=== PATIENT | male | born 1965 | race Caucasian/White ===

== ENCOUNTER 2023-02-13 18:32 | Emergency (ER) | payer MEDICAID ==
[~2023-02-13] VITALS: Ht 177.8 cm; Wt 102.3 kg
[2023-02-13] MEDS ORDERED: amiodarone 150mg/dext, iso-os 100 ML IV ONE ×3 (18:45→19:00)
[2023-02-13] MEDS ORDERED: amiodarone 50MG/ML inj IV ONE (18:45)
[2023-02-13 19:03] LABS: BASOPHILS % (AUTO) 0.4 % (0-1); EOSINOPHILS % (AUTO) 0.3 % (0-6); HEMATOCRIT 43.5 % (42.0-52.0); HEMOGLOBIN 14.6 g/dl (14.0-17.9); LYMPHOCYTES % (AUTO) 26.6 % (21-51); MEAN CORPUSCULAR HEMOGLOBIN 29.5 PG (27.0-31.0); MEAN CORPUSCULAR HGB CONC 33.5 g/dL (33.0-36.5); MEAN PLATELET VOLUME 8.4 FL (7.4-10.4); MONOCYTES # (AUTO) 1.2 X10'3 (0-0.9); MONOCYTES % (AUTO) 10.9 % (2-12); NEUTROPHILS % (AUTO) 61.8 % (42-75); PLATELET COUNT 232 X10'3 (140-440); RED BLOOD COUNT 4.95 X10'6 (4.70-6.10); RED CELL DISTRIBUTION WIDTH 14.2 % (11.5-14.5); WHITE BLOOD COUNT 11.4 X10'3 (4.5-11.0)
[2023-02-13] MEDS: amiodarone/D5 360MG/200ML BAG 200 ML IV SCH (19:08)
[2023-02-13] MEDS ORDERED: aspirin 325mg tablet PO ONE (19:15)
[2023-02-13 19:24] LABS: ALANINE AMINOTRANSFERASE 64 U/L (12-78); ALBUMIN 3.2 G/DL (3.4-5.0); ALBUMIN/GLOBULIN RATIO 0.6 (1.1-1.5); ALKALINE PHOSPHATASE 202 IU/L (46-116); ANION GAP 12 (8-16); ASPARTATE AMINO TRANSFERASE 33 U/L (10-37); BILIRUBIN,TOTAL 1.1 MG/DL (0.1-1.0); BLOOD UREA NITROGEN 28 MG/DL (7-18); BUN/CREATININE RATIO 16.2 (10.0-20.0); CALCIUM 8.5 MG/DL (8.5-10.1); CHLORIDE 102 MMOL/L (99-107); CREATININE 1.73 MG/DL (0.60-1.10); GLUCOSE 121 MG/DL (70-104); POTASSIUM 3.7 MMOL/L (3.5-5.1); SODIUM 138 MMOL/L (135-145); TOTAL CARBON DIOXIDE 24.2 MMOL/L (24-32); TOTAL PROTEIN 8.3 G/DL (6.4-8.2); eGFR 41 ML/MIN
[2023-02-13 19:26] LABS: ETHANOL < 10 MG/DL (<10); THYROID STIMULATING HORMONE 2.37 ulU/ml (0.34-4.50)
[2023-02-13 19:30] LABS: MAGNESIUM 2.1 MG/DL (1.5-2.4); PRO BRAIN NATRIURETIC PEPTIDE 11572 PG/ML (0-125)
[2023-02-13] MEDS ORDERED: magnesium 2GM in 50ml NS 50 ML IV ONE (21:15)
[2023-02-14] MEDS: potassium Cl 20 mEq SR tablet PO STA ×2 (00:14→00:17)
[2023-02-14] MEDS ORDERED: potassium Cl 20 mEq SR tablet PO STA (00:18)
[2023-02-14] MEDS ORDERED: LORazepam 1 MG tablet PO ONE (00:30)
[2023-02-14] MEDS: amiodarone/D5 360MG/200ML BAG 200 ML IV SCH ×5 (00:39→19:26)
[2023-02-14 06:31] LABS: BILIRUBIN,URINE MODERATE (Neg); CLARITY,URINE CLEAR (Clear); GLUCOSE, URINE NEGATIVE (Neg); KETONES,URINE NEGATIVE (Neg); LEUKOCYTE ESTERASE ,URINE NEGATIVE (Neg); NITRITES, URINE NEGATIVE (Neg); OCCULT BLOOD,URINE NEGATIVE (Neg); PROTEIN,URINE 100 mg/dl (Neg)
[2023-02-14 06:33] LABS: URINE AMPHETAMINE SCREEN POSITIVE (Neg); URINE BARBITUATE SCREEN NEGATIVE (Neg); URINE BENZODIAZEPINES SCREEN NEGATIVE (Neg); URINE CANNABINOID SCREEN NEGATIVE (Neg); URINE COCAINE SCREEN NEGATIVE (Neg); URINE METHADONE SCREEN NEGATIVE (Neg); URINE OPIATE SCREEN NEGATIVE (Neg); URINE PHENCYCLIDINE SCREEN NEGATIVE (Neg)
[2023-02-14] MEDS ORDERED: diphenhydrAMINE 50 mg/ml inj IV ONE (06:35)
[2023-02-14] MEDS ORDERED: metoclopramide 5 mg/ml inj IV ONE (06:35)
[2023-02-14] MEDS ORDERED: ketorolac trometh. 30mg/ml inj. IV ONE (06:35)
[2023-02-14 06:38] LABS: COLOR,URINE DARK YELLOW (Yellow); UA COLLECTION TYPE CLN CATCH MIDSTREAM
[2023-02-14 06:40] LABS: AMORPHOUS URATES 1+; HYALINE CASTS >30 /LPF (NEGATIVE); RBC,URINE NONE SEEN /HPF (0-2)
[2023-02-14 06:42] LABS: BACTERIA,URINE FEW /HPF (Neg); CELLULAR CAST 0-4 /LPF (NEGATIVE); MUCUS STRANDS MANY /LPF (Neg); SQUAMOUS EPITHELIAL CELL,UR FEW /LPF (FEW)
--- NOTE | 2023-02-14 12:00 | NUR ---
notified of no urine output from pt. to put in orders for repeat labs.
--- NOTE | 2023-02-14 12:27 | NUR ---
Security Director at bedside
--- NOTE | 2023-02-14 12:30 | NUR ---
Per cardiology continue amiodarone drip, keep k+ greater than 4.0 and mag greater than 2.0
--- NOTE | 2023-02-14 13:03 | NUR ---
FILLING TECHNICIAN AT BEDSIDE
[2023-02-14 13:16] LABS: BASOPHILS # (AUTO) 0.1 X10'3 (0-0.2); BASOPHILS % (AUTO) 0.6 % (0-1); EOSINOPHILS # (AUTO) 0.1 X10'3 (0-0.9); EOSINOPHILS % (AUTO) 0.9 % (0-6); HEMATOCRIT 40.4 % (42.0-52.0); HEMOGLOBIN 13.4 g/dl (14.0-17.9); LYMPHOCYTES # (AUTO) 2.1 X10'3 (1.1-4.8); LYMPHOCYTES % (AUTO) 23.7 % (21-51); MEAN CORPUSCULAR HEMOGLOBIN 29.3 PG (27.0-31.0); MEAN CORPUSCULAR HGB CONC 33.3 g/dL (33.0-36.5); MEAN CORPUSCULAR VOLUME 87.9 FL (78-98); MEAN PLATELET VOLUME 8.5 FL (7.4-10.4); MONOCYTES # (AUTO) 0.9 X10'3 (0-0.9); MONOCYTES % (AUTO) 9.7 % (2-12); NEUTROPHILS # (AUTO) 5.8 X10'3 (1.8-7.7); NEUTROPHILS % (AUTO) 65.1 % (42-75); PLATELET COUNT 199 X10'3 (140-440); RED BLOOD COUNT 4.59 X10'6 (4.70-6.10); RED CELL DISTRIBUTION WIDTH 13.9 % (11.5-14.5)
[2023-02-14 13:50] LABS: ALANINE AMINOTRANSFERASE 43 U/L (12-78); ALBUMIN 2.8 G/DL (3.4-5.0); ALBUMIN/GLOBULIN RATIO 0.7 (1.1-1.5); ALKALINE PHOSPHATASE 164 IU/L (46-116); ANION GAP 11 (8-16); ASPARTATE AMINO TRANSFERASE 23 U/L (10-37); BILIRUBIN,TOTAL 0.6 MG/DL (0.1-1.0); BLOOD UREA NITROGEN 36 MG/DL (7-18); CALCIUM 8.4 MG/DL (8.5-10.1); CHLORIDE 104 MMOL/L (99-107); GLUCOSE 93 MG/DL (70-104); POTASSIUM 3.9 MMOL/L (3.5-5.1); SODIUM 138 MMOL/L (135-145); TOTAL CARBON DIOXIDE 23.3 MMOL/L (24-32); TOTAL PROTEIN 6.7 G/DL (6.4-8.2); eCRCL 55 ML/MIN; eGFR 48 ML/MIN
[2023-02-14 13:54] LABS: MAGNESIUM 2.4 MG/DL (1.5-2.4); PRO BRAIN NATRIURETIC PEPTIDE 3721 PG/ML (0-125)
--- NOTE | 2023-02-14 14:25 | NUR ---
[facility] CALLED @ 2933 STILL WORKING ON BED
--- NOTE | 2023-02-14 16:58 | NUR ---
CHECKED @1657 STILL NO BEDS
[2023-02-14 20:05] VITALS: TEMP 99
--- NOTE | 2023-02-14 20:09 | NUR ---
REPORT CALLED TO [facility] TO HALINA MOY. ROOM #[id number]. TRANSPORT WITH [facility] CALLED BY [facility], AWAITING ETA.
[2023-02-14 20:31] VITALS: BP 125/91; PULSE 87; O2SAT 96
--- NOTE | 2023-02-14 20:37 | NUR ---
[facility] TRANSP[facility] ETA 45MIN.
--- NOTE | 2023-02-14 20:54 | NUR ---
PT REQUESTING MEDICATION FOR ANXIETY DUE TO FLIGHT. RECIEVED VERBAL ORDERS FROM DR PRUETT.
[2023-02-14] MEDS ORDERED: LORazepam 2 mg/ml vial IV ONE (20:55)
[2023-02-14] MEDS ORDERED: morphine 2 MG/ML inj. syringe IV ONE (20:55)
[2023-02-14 20:58] VITALS: RESP 17
--- NOTE | 2023-02-14 21:02 | NUR ---
pt appears very anxious. pt has been sleeping on an off for past 3 hours with no complaints of pain. once pt notified of helicopter eta, pt appeared awake adn anxious. mother at bedside.
--- NOTE | 2023-02-14 22:08 | NUR ---
[facility] FLIGHTCREW AT BEDSIDE. REPORT GIVEN TO SKEIN YARN DYER AND RN.
== END 2023-02-14 22:46 | disposition short-term general hospital (02) ==
LOC: ER 18:33
DX: I47.20 Ventricular tachycardia, unspecified (principal); Z20.822 Contact with and (suspected) exposure to COVID-19; R07.9 Chest pain, unspecified; N28.9 Disorder of kidney and ureter, unspecified; I50.9 Heart failure, unspecified
CPT/HCPCS: 36415; 71045; 80053; 80305; 80320; 81001; 82948; 83735; 83880; 84443; 84484; 85025; 87811; 93005; 93306; 96365; 96366; 96367; 96375; 96376; 99291; J0282; J1200; J1885; J2060; J2270; J2765; J3475